=== PATIENT | male | born 1975 | race Caucasian/White ===

== ENCOUNTER 2016-10-14 01:07 | Emergency (ER) | payer MEDICAID ==
[~2016-10-14] VITALS: Ht 170.2 cm; Wt 91.0 kg
[~2016-10-14 01:07] MED LIST: ASPI325T32 PO; ATOR40TA68 PO; Carvedilol PO; HYDR-906 PO; LISI20TA11 PO; NAPR-260 PO
[2016-10-14 01:09] VITALS: Ht 170.2 cm; Wt 91.0 kg
--- NOTE | 2016-10-14 01:37 | ERD ---
ER Documentation Chief Complaint Date/Time DATE: 10/14/16 TIME: 01:35 Chief Complaint right wrist pain x 1 week HPI 30-year-old male presents to emergency department complains of right wrist pain after landing on it one week ago after a fall. Patient described the pain as throbbing pain, 6/10 scale, is worse upon movement. Patient denies any hematuria. Patient denies any pain in the fingers. Patient denies any numbness or tingling. Patient denies any deformity. Patient took ibuprofen for pain with mild relief. ROS All systems reviewed and are negative except as per history of present illness. Medications Home Meds Active Scripts Naproxen* (Naprosyn*) 500 Mg Tablet, 500 MG PO BID Y for PAIN AND/OR INFLAMMATION, #30 TAB Prov:LEI PHILLIPS PA-C 04/29/16 Hydrocodone Bit-Acetaminophen (Xenia) 5-325 Mg Tablet, 1 TAB PO Q4H Y for PAIN, #30 TAB Prov:SHEILA MATHEW 08/22/14 Lisinopril* (Lisinopril*) 20 Mg Tablet, 20 MG PO DAILY for 60 Days, TAB Prov:SHEILA MATHEW 08/22/14 Atorvastatin* (Atorvastatin*) 40 Mg Tablet, 40 MG PO HS for 60 Days, TAB Prov:SHEILA MATHEW 08/22/14 [Carvedilol] 3.125 MG TAB No Conflict Check, 3.125 MG PO BID for 60 Days, TAB Prov:SHEILA MATHEW 08/22/14 Aspirin* (Aspirin* EC) 325 Mg Tab, 325 MG PO DAILY for 60 Days, TAB Prov:SHEILA MATHEW 08/22/14 Allergies Allergies: Coded Allergies: No Known Allergy (Verified , 04/29/16) PMhx/Soc History of Surgery: Yes (cabg) Anesthesia Reaction: No Hx Neurological Disorder: No Hx Respiratory Disorders: No Hx Cardiac Disorders: Yes (HTN) Hx Psychiatric Problems: No Hx Miscellaneous Medical Probl: Yes (OBESITY) Hx Alcohol Use: No Hx Substance Use: No Hx Tobacco Use: No Smoking Status: Never smoker FmHx Family History: No coronary disease, No diabetes, No other Physical Exam Vitals Vital Signs Date Time Temp Pulse Resp B/P Pulse Ox O2 Delivery O2 Flow Rate FiO2 10/14/16 01:09 97.7 79 20 157/95 98 Physical Exam GENERAL: The patient is well developed and appropriate for usual state of health, in no apparent distress. CHEST: Clear to auscultation bilaterally. There are no rales, wheezes or rhonchi. HEART: Regular rate and rhythm. No murmurs, clicks, rubs or gallops. No S3 or S4. ABDOMEN: Soft, nontender and nondistended. Good bowel sounds. No rebound or guarding. No gross peritonitis. No gross organomegaly or masses. No Braden sign or McBurney point tenderness. BACK: No midline or flank tenderness. EXTREMITIES: Able to do full range of motion of the right wrist without any restriction, mild tenderness on palpation on the radial and ulnar aspect of the right wrist, mild swelling noted. Equal pulses bilaterally. Full range of motion of other joints of the body. Grossly neurovascularly intact. NEURO: Alert and oriented. Cranial nerves 2-12 intact. Motor strength in all 4 extremities with 5/5 strength. Sensation grossly intact. Normal speech and gait. SKIN: There is no apparent rash or petechia. The skin is warm and dry. HEMATOLOGIC AND LYMPHATIC: There is no evidence of excessive bruising or lymphedema. No gross cervical, axillary, or inguinal lymphadenopathy. Results 24 hrs PROCEDURE: XR wrist. CLINICAL INDICATION: Trauma. TECHNIQUE: AP, lateral and oblique views of the right wrist was obtained. COMPARISON: There are no similar studies submitted for comparison. FINDINGS: There is no acute fracture or dislocation. No destructive osseous lesions are seen. The joint spaces are unremarkable. IMPRESSION: No acute fracture or dislocation. RPTAT: HIKT .Casimiro Hirsch MD, Date Time Electronically viewed and signed by .Casimiro Hirsch MD, MD on 10/14/2016 02:31 .T/ CC: LYNDON MEJIA NP After receiving patients xray report, a Velcro support was applied on the patients right wrist. After application of the splint, patient has intact sensation and circulation on distal area of the affected joint. Patient does not complain of numbness or tingling after application of the splint. Patient tolerated procedure well. Procedures/MDM Medical Decision Making: Patient's pain is most likely consistent with a contusion or a sprain. There is no suspicion for neurovascular compromise. Patient has intact sensation and circulation of the affected extremity. There is low suspicion for septic arthritis. Patient does not have any fever. Radiology exams of the affected area does not show any fracture or dislocation. Disposition: Home. Patient is given prescription for ibuprofen for pain. Patient was advised to elevate the affected area and apply ice on affected area. Patient was advised that if symptoms are worse, numbness, tingling, high fever, unable to move joint, worsening symptoms, to return to emergency department immediately. Otherwise, patient is advised to follow up with the primary care doctor in 5-7 days for reevaluation of symptoms. Departure Diagnosis: Primary Impression: Wrist sprain Encounter type: initial encounter Laterality: right Qualified Code: S63.501A - Wrist sprain, right, initial encounter Condition: Stable Patient Instructions: Wrist Sprain Additional Instructions: Patient is given prescription for ibuprofen for pain. Patient was advised to elevate the affected area and apply ice on affected area. Patient was advised that if symptoms are worse, numbness, tingling, high fever, unable to move joint , worsening symptoms, to return to emergency department immediately. Otherwise, patient is advised to follow up with the primary care doctor in 5-7 days for reevaluation of symptoms. LYNDON MEJIA NP Oct 14, 2016 01:36
--- NOTE | 2016-10-14 02:31 | RADRPT ---
PROCEDURE: XR wrist. CLINICAL INDICATION: Trauma. TECHNIQUE: AP, lateral and oblique views of the right wrist was obtained. COMPARISON: There are no similar studies submitted for comparison. FINDINGS: There is no acute fracture or dislocation. No destructive osseous lesions are seen. The joint spaces are unremarkable. IMPRESSION: No acute fracture or dislocation. RPTAT: HIKT .Casimiro Hirsch MD, MD Date Time Electronically viewed and signed by .Casimiro Hirsch MD, on 10/14/2016 02:31 .T/
[2016-10-14] MEDS ORDERED: IBUP-1542 PO (02:40)
== END 2016-10-14 02:46 | disposition home or self-care (01) ==
LOC: FTE 01:07
DX: S63.501A Unspecified sprain of right wrist, initial encounter (principal); I10 Essential (primary) hypertension; W19.XXXA Unspecified fall, initial encounter; Y92.9 Unspecified place or not applicable; Z79.82 Long term (current) use of aspirin; Z95.1 Presence of aortocoronary bypass graft

== ENCOUNTER 2018-03-12 23:57 | Emergency (ER) | END 2018-03-13 02:41 | disposition home or self-care (01) ==